=== PATIENT | female | born 1955 | race Caucasian/White ===

== ENCOUNTER → 2017-06-28 | Outpatient (CLI) | payer BC, MEDICARE ==
[2016-04-02 14:43] VITALS: BP 107/66
[~2017-06-28] MED LIST: ALBU2.5V5 NEB; ALPR0.25 PO; CHOL3000 PO; CRESTOR10 MG PO; DULO60CA6 PO; FLUT1DIS IH; HYDR-2762 PO; HYDR-965 PO; IBUP200T43 PO; LEVO88TA4 PO; MONT10TA9 PO; PHEN37.53 PO; POTA10TA12 PO; PREG300C PO; PREG75CA PO; PROAIR HFA8.5 GM INH; TRIA1TAB5 PO
--- NOTE | 2017-06-28 15:26 | KCIC ---
EXAM: Chest and left ribs, 4 views. HISTORY: Pain status post fall. COMPARISON: None. FINDINGS: A frontal view the chest and 3 views of the left ribs are obtained. There is lingular and left lower lobe atelectasis or scarring. There is no effusion or pneumothorax. The heart is normal in size. No displaced fracture is seen. IMPRESSION: 1. Suspected lingular and left lower lobe atelectasis or scarring. 2. No acute osseous finding. Electronically signed by: Sylvia Loo MD (06/28/2017 3:23 PM) [id number]
== END | disposition home or self-care (01) ==
LOC: KCIC 14:37
PROVIDERS: ATTEND Nurse Practitioner Family
DX: R07.81 Pleurodynia (principal); Z91.81 History of falling
CPT/HCPCS: 71101

== ENCOUNTER → 2018-02-28 | Outpatient (CLI) | payer BC, MEDICARE | END | disposition home or self-care (01) | LOC: KCIC MAMMO 17:16 | DX: Z12.31 Encounter for screening mammogram for malignant neoplasm of breast (principal) | CPT/HCPCS: 77063; 77067 ==

== ENCOUNTER → 2018-03-02 | Outpatient (CLI) | payer BC, MEDICARE | END | disposition home or self-care (01) | LOC: KCIC US 15:28 | DX: E03.9 Hypothyroidism, unspecified (principal) | CPT/HCPCS: 76536 ==

== ENCOUNTER 2020-03-16 17:06 | Emergency (ER) | payer BC, MEDICARE ==
[~2020-03-16] VITALS: Ht 152.4 cm; Wt 86.0 kg
[~2020-03-16 17:06] MED LIST changes: +ALBU2.5V8 INH; -HYDR-2762 PO; +HYDR-2765 PO; +HYDR-3165 PO; -HYDR-965 PO; -IBUP200T43 PO; +IBUP200T44 PO; +MONT10TA49 PO; -MONT10TA9 PO; -POTA10TA12 PO; +POTASSIUM CHLO10 ME1 PO; -PROAIR HFA8.5 GM INH
[2020-03-16] MEDS ORDERED: IV NORMAL SALINE 1000ML BAG 1,000 ML IV ONE (17:30)
[2020-03-16 17:35] LABS: BASO # 0.1 x10^3/uL (0.0-0.2); BASO % 1 % (0-3); EOS # 0.1 x10^3/uL (0.0-0.7); EOS % 2 % (0-3); HEMATOCRIT 37.6 % (36.0-47.0); HEMOGLOBIN 12.5 g/dL (12.0-15.5); LYMPH # 2.2 x10^3/uL (1.0-4.8); LYMPH % 32 % (24-48); MEAN CORPUSCULAR HEMOGLOBIN 30 pg (25-35); MEAN CORPUSCULAR HGB CONC 33 g/dL (31-37); MEAN CORPUSCULAR VOLUME 88 fL (79-100); MONO # 0.4 x10^3/uL (0.0-1.1); MONO % 6 % (0-9); NEUT % 60 % (31-73); PLATELET COUNT 285 x10^3/uL (140-400); RED BLOOD COUNT 4.25 x10^6/uL (3.50-5.40); RED CELL DISTRIBUTION WIDTH 14.3 % (11.5-14.5); WHITE BLOOD COUNT 6.6 x10^3/uL (4.0-11.0)
[2020-03-16 17:45] LABS: CALCIUM 8.9 mg/dL (8.5-10.1); CREATININE 0.9 mg/dL (0.6-1.0); GFR 63.2
[2020-03-16] MEDS ORDERED: DIPH,PERTUSS(ACELL),TET VAC/PF 0.5 ML SYRINGE. VAX IM ONE (17:45)
[2020-03-16 17:51] LABS: ALBUMIN 3.7 g/dL (3.4-5.0); ALBUMIN/GLOBULIN RATIO 0.9 (1.0-1.7); MAGNESIUM 1.9 mg/dL (1.8-2.4); TOTAL BILIRUBIN 0.4 mg/dL (0.2-1.0); TOTAL PROTEIN 7.9 g/dL (6.4-8.2)
--- NOTE | 2020-03-16 17:56 | PHYS DOC ---
Past Medical History Past Medical History: Arthritis, Asthma, Cancer, High Cholesterol, Hypothyroid Additional Past Medical Histor: Colon CA; fibromyalgia (LINDA CELIS DO) Past Surgical History: , Hysterectomy, Other Additional Past Surgical Histo: partial colectomy (LINDA CELIS DO) Smoking Status: Never Smoker Alcohol Use: None (LINDA CELIS DO) General Adult EDM: Chief Complaint: HEAD INJURY/TRAUMA HPI: HPI: 64-year-old female states she was leaning forward lost her balance fell forward hit her head on a rock lost consciousness and ended up on her back. She does not know how long she was out she does not exactly know how she ended up on her back. She denied any preceding symptoms such as chest pain shortness of breath or palpitations. She does complain of a headache at this point. She denies any significant nausea no vomiting. She does state that she has been unsteady on her feet. [] (LINDA CELIS DO) Review of Systems: Review of Systems: Constitutional: Denies fever or chills. [] Eyes: Denies change in visual acuity. [] HENT: Denies nasal congestion or sore throat. [] Respiratory: Denies cough or shortness of breath. [] Cardiovascular: Denies chest pain or edema. [] GI: Denies abdominal pain, nausea, vomiting, bloody stools or diarrhea. [] : Denies dysuria. [] Musculoskeletal: Denies back pain or joint pain. [] Integument: Laceration on her forehead [] Neurologic: Reports headache. [] Endocrine: Denies polyuria or polydipsia. [] Lymphatic: Denies swollen glands. [] Psychiatric: Denies depression or anxiety. [] (LINDA CELIS DO) Heart Score: Risk Factors: Risk Factors: DM, Current or recent (<one month) smoker, HTN, HLP, family history of CAD, obesity. Risk Scores: Score 0 - 3: 2.5% MACE over next 6 weeks - Discharge Home Score 4 - 6: 20.3% MACE over next 6 weeks - Admit for Clinical Observation Score 7 - 10: 72.7% MACE over next 6 weeks - Early Invasive Strategies (LINDA CELIS DO) Current Medications: Current Medications Medications (Trade) Dose Ordered Sig/Guillermina Start Time Stop Time Status Last Admin Dose Admin Diphtheria/ Tetanus/Acell Pertussis (ADACEL TDap SYRINGE) 0.5 ml ONCE ONCE 03/16/20 17:45 03/16/20 17:49 DC Sodium Chloride 1,000 ml @ 1,000 mls/hr 1X ONCE 03/16/20 17:30 03/16/20 18:29 03/16/20 17:42 1,000 MLS/HR (LINDA CELIS DO) Allergies: Allergies: Allergies Coded Allergies Type Severity Reaction Last Updated Verified pepper (genus Capsicum) Allergy Severe Shortness of Air 03/30/16 Yes (LINDA CELIS DO) Physical Exam: PE: Constitutional: Well developed, well nourished, appears uncomfortable [] HENT: Normocephalic, atraumatic, bilateral external ears normal, oropharynx moist, no oral exudates, nose normal. [] Eyes: PERRLA, EOMI, conjunctiva normal, no discharge. [] Neck: Normal range of motion, no tenderness, supple, no stridor. [] Cardiovascular:Heart rate regular rhythm, no murmur [] Lungs & Thorax: Bilateral breath sounds clear to auscultation [] Abdomen: Bowel sounds normal, soft, no tenderness, no masses, no pulsatile masses. [] Skin: 2 cm linear superficial laceration to the right central portion of her forehead, there is also bruising and abrasion to the right antecubital area [] Back: No tenderness, no CVA tenderness. [] Extremities: No tenderness, no cyanosis, no clubbing, ROM intact, no edema. [] Neurologic: Alert and oriented X 3, normal motor function, normal sensory function, no focal deficits noted. [] Psychologic: Affect normal, judgement normal, mood normal. [] (LINDA CELIS DO) Current Patient Data: Labs: Laboratory Tests Test 03/16/20 17:27 White Blood Count 6.6 x10^3/uL (4.0-11.0) Red Blood Count 4.25 x10^6/uL (3.50-5.40) Hemoglobin 12.5 g/dL (12.0-15.5) Hematocrit 37.6 % (36.0-47.0) Mean Corpuscular Volume 88 fL (79-100) Mean Corpuscular Hemoglobin 30 pg (25-35) Mean Corpuscular Hemoglobin Concent 33 g/dL (31-37) Red Cell Distribution Width 14.3 % (11.5-14.5) Platelet Count 285 x10^3/uL (140-400) Neutrophils (%) (Auto) 60 % (31-73) Lymphocytes (%) (Auto) 32 % (24-48) Monocytes (%) (Auto) 6 % (0-9) Eosinophils (%) (Auto) 2 % (0-3) Basophils (%) (Auto) 1 % (0-3) Neutrophils # (Auto) 4.0 x10^3/uL (1.8-7.7) Lymphocytes # (Auto) 2.2 x10^3/uL (1.0-4.8) Monocytes # (Auto) 0.4 x10^3/uL (0.0-1.1) Eosinophils # (Auto) 0.1 x10^3/uL (0.0-0.7) Basophils # (Auto) 0.1 x10^3/uL (0.0-0.2) Sodium Level 144 mmol/L (136-145) Potassium Level 4.0 mmol/L (3.5-5.1) Chloride Level 104 mmol/L (98-107) Carbon Dioxide Level 28 mmol/L (21-32) Anion Gap 12 (6-14) Blood Urea Nitrogen 15 mg/dL (7-20) Creatinine 0.9 mg/dL (0.6-1.0) Estimated GFR (Cockcroft-Gault) 63.2 BUN/Creatinine Ratio 17 (6-20) Glucose Level 113 mg/dL (70-99) H Calcium Level 8.9 mg/dL (8.5-10.1) Magnesium Level Pending Total Bilirubin Pending Aspartate Amino Transferase (AST) Pending Alanine Aminotransferase (ALT) Pending Alkaline Phosphatase Pending Total Protein Pending Albumin Pending Albumin/Globulin Ratio Pending Laboratory Tests 03/16/20 17:27 Laboratory Tests 03/16/20 17:27 Vital Signs: Vital Signs Date Time Temp Pulse Resp B/P (MAP) Pulse Ox O2 Delivery O2 Flow Rate FiO2 03/16/20 17:23 98.1 89 16 107/66 (80) 99 Room Air 98.1 (LINDA CELIS DO) EKG: EKG: [EKG: Normal sinus rhythm rate in the 80s without ischemic ST-T changes] (LINDA CELIS DO) Radiology/Procedures: Radiology/Procedures: [] (LINDA CELIS DO) Impression: PROCEDURE: CT HEAD WO CONTRAST CT Head W/O Contrast: History: Head trauma Comparison: none Axial images were obtained without contrast. There is mild diffuse atrophy. There is no mass effect, extraaxial fluid collections or hydrocephalus. There is no focal loss of mendoza-white matter distinction to suggest acute ischemia, i.e. stroke. Impression: No acute findings. PQRS Compliance Statement: One or more of the following individualized dose reduction techniques were utilized for this examination: 1. Automated exposure control 2. Adjustment of the mA and/or kV according to patient size 3. Use of iterative reconstruction technique Electronically signed by: Patrice Hunt III, MD (03/16/2020 6:16 PM) [id number] (BARBARA TRUJILLO Jr., DO) Course & Med Decision Making: Course & Med Decision Making Pertinent Labs and Imaging studies reviewed. (See chart for details) [] (LINDA CELIS DO) Dragon Disclaimer: Dragon Disclaimer: This electronic medical record was generated, in whole or in part, using a voice recognition dictation system. (LINDA CELIS DO) Departure Departure Impression: Primary Impression: Forehead laceration Qualified Codes: S01.81XA - Laceration without foreign body of other part of head, initial encounter Additional Impression: Head injury with loss of consciousness Disposition: HOME, SELF-CARE Condition: STABLE Referrals: DMITRIY GUAMAN APRN (PCP) Patient Instructions: Facial Laceration, Head Injury, Adult LINDA CELIS DO Mar 16, 2020 17:56 BARBARA TRUJILLO Jr., DO Mar 16, 2020 19:36
--- NOTE | 2020-03-16 18:18 | RAD ---
CT Head W/O Contrast: History: Head trauma Comparison: none Axial images were obtained without contrast. There is mild diffuse atrophy. There is no mass effect, extraaxial fluid collections or hydrocephalus. There is no focal loss of mendoza-white matter distinction to suggest acute ischemia, i.e. stroke. Impression: No acute findings. RS Compliance Statement: One or more of the following individualized dose reduction techniques were utilized for this examination: 1. Automated exposure control 2. Adjustment of the mA and/or kV according to patient size 3. Use of iterative reconstruction technique Electronically signed by: Patrice Hunt III, MD (03/16/2020 6:16 PM) [id number]
[2020-03-16 18:46] LABS: BILIRUBIN,URINE NEGATIVE (NEG); CLARITY,URINE CLEAR; COLOR,URINE YELLOW; NITRITE,URINE NEGATIVE (NEG); PH,URINE 6.5 (<5.0-8.0); PROTEIN,URINE NEGATIVE (NEG-TRACE); UROBILINOGEN,URINE 0.2 mg/dL (0.2 mg/dL)
[2020-03-16 18:51] LABS: SQUAMOUS EPITHELIAL CELL,UR MOD /LPF
[2020-03-16 18:52] LABS: BACTERIA,URINE 0 /HPF (0-FEW)
[2020-03-16 19:38] VITALS: BP 129/60
--- NOTE | 2020-03-16 20:02 | EKG ---
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
== END 2020-03-16 19:55 | disposition home or self-care (01) ==
LOC: ER 17:06
DX: S01.81XA Laceration without foreign body of other part of head, initial encounter (principal); S06.9X1A Unspecified intracranial injury with loss of consciousness of 30 minutes or less, initial encounter; R55 Syncope and collapse; R51 Headache; M19.90 Unspecified osteoarthritis, unspecified site; J45.909 Unspecified asthma, uncomplicated; E78.00 Pure hypercholesterolemia, unspecified; E03.9 Hypothyroidism, unspecified; Z85.9 Personal history of malignant neoplasm, unspecified; M79.7 Fibromyalgia; Z91.018 Allergy to other foods; Z90.710 Acquired absence of both cervix and uterus; Z98.890 Other specified postprocedural states; W18.09XA Striking against other object with subsequent fall, initial encounter; Y93.89 Activity, other specified; Y92.89 Other specified places as the place of occurrence of the external cause; Y99.8 Other external cause status
CPT/HCPCS: 36415; 70450; 80053; 81001; 83735; 84484; 85025; 87086; 90471; 90715; 93005; 96360; 99285; J7030

== ENCOUNTER → 2020-12-03 | Outpatient (CLI) | payer BC, MEDICARE ==
[~2020-12-03] MED LIST changes: +PREG-9 PO; -PREG75CA PO
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
== END ==
LOC: KCIC 14:12
PROVIDERS: ATTEND Nurse Practitioner Family
DX: S00.83XA Contusion of other part of head, initial encounter (principal); R51.9 Headache, unspecified; Y08.89XA Assault by other specified means, initial encounter; Y93.89 Activity, other specified; Y92.89 Other specified places as the place of occurrence of the external cause; Y99.8 Other external cause status
CPT/HCPCS: 70150

== ENCOUNTER → 2021-01-23 | Outpatient (CLI) | payer BC, MEDICARE ==
--- NOTE | 2021-01-23 18:18 | KCIC ---
EXAMINATION: XR BILATERAL HIP (WITH OR WITHOUT PELVIS) 2 VIEWS_RIGHT CLINICAL HISTORY: Posterior right hip pain, worse in the last 2 months TECHNIQUE: XR BILATERAL HIP (WITH OR WITHOUT PELVIS) 2 VIEWS_RIGHT Number of Images/Views: 3 COMPARISON: None FINDINGS: Joint space alignment are relatively well-maintained in the right hip. Limited evaluation of the left hip unremarkable. Pubic symphysis and SI joints maintained. Partially visualized lumbar degenerative changes. No acute fracture. IMPRESSION: No acute osseous abnormality right hip. Electronically signed by: Tavon Ortega DO (01/23/2021 6:16 PM) [id number]
== END ==
LOC: KCIC 14:44
PROVIDERS: ATTEND Nurse Practitioner Family
DX: M25.551 Pain in right hip (principal)
CPT/HCPCS: 73502

== ENCOUNTER → 2021-10-07 | Outpatient (CLI) | payer BC, MEDICARE ==
[~2021-10-07] MED LIST changes: -DULO60CA6 PO; +DULO60CA7 PO
--- NOTE | 2021-10-07 09:11 | RAD ---
EXAM: Abdomen sonogram. HISTORY: Right upper quadrant pain. TECHNIQUE: Sonographic imaging of the abdomen was performed. COMPARISON: None. FINDINGS: The liver is normal in size. There is no focal hepatic lesion. The gallbladder is unremarka ble. The common bile duct is normal in caliber. The pancreas is partially obscured due to bowel gas. The inferior vena cava is patent. The right kidney is unremarkable. IMPRESSION: No acute sonographic finding. Electronically signed by: Sylvia Loo MD (10/07/2021 9:09 AM) [id number]
== END ==
LOC: US 14:58
PROVIDERS: ATTEND Nurse Practitioner Family
DX: R10.10 Upper abdominal pain, unspecified (principal)
CPT/HCPCS: 76705

== ENCOUNTER → 2021-12-02 | Outpatient (CLI) | payer MEDICARE, BC ==
--- NOTE | 2021-12-02 14:21 | KCIC ---
EXAMINATION: MRI RIGHT LOWER EXTREMITY JOINT WITHOUT INDICATIONS: Right knee pain and swelling. Pain is anterior. TECHNIQUE: Multiplanar multisequence MRI of the right knee was obtained without contrast. COMPARISON: MRI right knee 07/17/2014 FINDINGS: MENISCI: There is a new complex degenerative tear in the body and posterior horn medial meniscus wit h a horizontal component extending to the superior surface. Slight displacement of meniscal tissue in to the inferior medial recess along the body. No lateral meniscus tear. LIGAMENTS: The anterior and posterior cruciate ligaments are intact. The medial collateral ligament and lateral collateral ligament complex are intact. EXTENSOR MECHANISM: The quadriceps and patellar tendons are intact. Mild edema in the medial aspect of the suprapatellar fat pad. Retinacula are intact. BONES AND CARTILAGE: No acute fracture. Small tricompartmental osteophytes. Scattered superficial an d deep partial-thickness cartilage loss along the patella has not significantly changed. There are ne w subchondral cysts in the lateral patellar facet. Slightly increased partial-thickness cartilage los s along the trochlear groove. There is predominantly superficial partial-thickness cartilage loss in the medial compartment, slightly worsened along the posterior weightbearing medial tibial plateau whe re there are some small areas of deeper cartilage loss. Predominantly superficial partial-thickness c artilage loss in the lateral compartment, overall unchanged although a full-thickness cartilage fissu re in the lateral tibial plateau is less conspicuous. Small enchondroma in the distal femoral diaphys is is unchanged. OTHER: Unchanged mild tendinopathy of the semimembranosus tendon. Edema along the medial joint line is reactive to medial meniscal tear. Significantly decreased, now small Ramirez cyst. Muscles are sarah l in signal. Small joint effusion. IMPRESSION: 1. New complex degenerative tear of the body and posterior horn medial meniscus. 2. Tricompartmental cartilage loss, slightly progressed in areas some areas of the medial and patello femoral compartment. New subchondral cysts in the lateral patellar facet. 3. Significantly decreased, now small Ramirez cyst. Small joint effusion. Electronically signed by: Cristy Barnes MD (12/02/2021 2:19 PM) [id number]
== END ==
LOC: KCIC MRI 12:24
PROVIDERS: ATTEND Nurse Practitioner Family
DX: S83.231A Complex tear of medial meniscus, current injury, right knee, initial encounter (principal); R60.0 Localized edema; M71.21 Synovial cyst of popliteal space [Baker], right knee; M25.461 Effusion, right knee; M25.761 Osteophyte, right knee; M25.861 Other specified joint disorders, right knee; X58.XXXA Exposure to other specified factors, initial encounter; Y93.89 Activity, other specified; Y92.89 Other specified places as the place of occurrence of the external cause; Y99.8 Other external cause status
CPT/HCPCS: 73721